=== PATIENT | female | born 1980 | race African-American/Black ===

== ENCOUNTER → 2018-08-11 | Emergency (ER) | payer OTHER ==
[2018-08-11 10:55] VITALS: BP 145/94; PULSE 90; TEMP 97.3; BMI 50.0
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
--- NOTE | 2018-08-11 15:34 | EKG ---
Test Reason : Blood Pressure : / mmHG Vent. Rate : 089 BPM Atrial Rate : 089 BPM P-R Int : 164 ms QRS Dur : 086 ms QT Int : 356 ms P-R-T Axes : 051 033 023 degrees QTc Int : 433 ms POOR DATA QUALITY, INTERPRETATION MAY BE ADVERSELY AFFECTED NORMAL SINUS RHYTHM NORMAL ECG WHEN COMPARED WITH ECG OF 05-NOV-2017 13:57, NO SIGNIFICANT CHANGE WAS FOUND Confirmed by GRAY CHOWDHURY, AUSTIN ([id number]) on 08/11/2018 3:34:20 PM Referred By: Confirmed By:AUSTIN CASTELLANO MD
== END | disposition left against medical advice (07) ==
LOC: JER 10:05
DX: R07.9 Chest pain, unspecified (principal); S00.83XA Contusion of other part of head, initial encounter; S30.871A Other superficial bite of abdominal wall, initial encounter; Y04.2XXA Assault by strike against or bumped into by another person, initial encounter; Y93.89 Activity, other specified; Y92.038 Other place in apartment as the place of occurrence of the external cause; Y99.8 Other external cause status; Y07.03 Male partner, perpetrator of maltreatment and neglect; Z21 Asymptomatic human immunodeficiency virus [HIV] infection status; D64.9 Anemia, unspecified; E04.1 Nontoxic single thyroid nodule; Z87.19 Personal history of other diseases of the digestive system
CPT/HCPCS: 93005; 93010; 99281-25

== ENCOUNTER 2019-04-18 15:59 | Emergency (ER) | payer OTHER ==
[2019-04-18 16:15] VITALS: BP 127/67; PULSE 100; TEMP 98.4; BMI 52.2
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
[2019-04-18] MEDS ORDERED: KETOROLAC TROMETHAMINE 60 MG/2 ML VIAL IM ONE (16:36)
[2019-04-18] MEDS ORDERED: KETOROLAC TROMETHAMINE 60 MG/2 ML VIAL ONE (16:43)
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
== END 2019-04-18 18:28 | disposition home or self-care (01) ==
LOC: JERFT 15:59
PROC: 3E0233Z Introduction of Anti-inflammatory into Muscle, Percutaneous Approach (ICD-10-PCS; principal; 2019-04-18)
DX: M54.5 Low back pain (principal); M25.562 Pain in left knee; M25.561 Pain in right knee; V43.62XA Car passenger injured in collision with other type car in traffic accident, initial encounter; Y92.414 Local residential or business street as the place of occurrence of the external cause; Y93.89 Activity, other specified; Y99.8 Other external cause status
CPT/HCPCS: 72100-TC-FY; 73562-TC-LT-FY; 73562-TC-RT-FY; 99281-25